=== PATIENT | female | born 1990 | race African-American/Black ===

== ENCOUNTER 2017-04-15 08:12 | Emergency (ER) | payer OTHER ==
[~2017-04-15] VITALS: Ht 154.9 cm; Wt 74.8 kg
[2017-04-15 09:58] LABS: U PREG PATIENT POSITIVE (NEG)
[2017-04-15 10:00] LABS: BILIRUBIN,URINE NEG (NEG); CLARITY,URINE HAZY; COLOR,URINE STRAW; GLUCOSE,URINE NEG (NEG); NITRITE,URINE NEG (NEG); RBC,URINE 0 /HPF (0-2); UROBILINOGEN,URINE 0.2 mg/dL (0.2 mg/dL)
[2017-04-15 10:01] LABS: BACTERIA,URINE FEW /HPF (0-FEW); SQUAMOUS EPITHELIAL CELL,UR OCC /LPF
[2017-04-15] MEDS ORDERED: ACETAMINOPHEN 325 MG TABLET PO ONE (10:15)
--- NOTE | 2017-04-15 10:16 | PHYS DOC ---
Past History Past Medical History: No Pertinent History Past Surgical History: , Tonsillectomy Smoking: Non-smoker Additional Smoking Information: PATIENT STATES SHE HAS CUT DOWN, SMOKES 2 CIGARETTES A DAY Alcohol Use: None Drug Use: Marijuana Adult General Chief Complaint Chief Complaint: MULTIPLE COMPLAINTS HPI HPI Patient is a 27 year old female who presents with complaint of headaches, nausea , and backaches. Patient states that her symptoms have been present over the past 3-4 days. Patient states that she has had history of migraine headaches and similar symptoms with previous pregnancies. The patient's main concern is the potential presents for . Patient states that her last menstrual period was at the beginning of January. Patient states that she had light spotting at the end of March. Patient is not having any pelvic or lower abdominal pain. Patient denies any vaginal bleeding or abnormal discharge. Patient has not taken a test at home. Patient states that her headache is an 8 out of 10. Patient has taken [id number] medications including ibuprofen and Tylenol with no relief in symptoms. Patient has had no fevers and has had no episodes of vomiting today. Patient has been tolerating normal oral intake. Review of Systems Review of Systems Constitutional: Denies fever or chills [] Eyes: Denies change in visual acuity, redness, or eye pain [] HENT: Denies nasal congestion or sore throat [] Respiratory: Denies cough or shortness of breath [] Cardiovascular: Denies chest pain or edema [] GI: Nausea, vomiting, denies bloody stools or diarrhea [] : Denies dysuria or hematuria [] Musculoskeletal: Back pain [] Integument: Denies rash or skin lesions [] Neurologic: Headache, denies focal weakness or sensory changes [] Current Medications Current Medications Current Medications Medications (Trade) Dose Ordered Sig/Keesha Start Time Stop Time Status Last Admin Dose Admin Acetaminophen (Tylenol) 650 mg 1X ONCE 04/15/17 10:15 04/15/17 10:16 UNV Allergies Allergies Allergies Coded Allergies Type Severity Reaction Last Updated Verified No Known Drug Allergies 01/05/16 No Physical Exam Physical Exam Constitutional: Alert, afebrile, no acute distress. [] HENT: Normocephalic, atraumatic, bilateral external ears normal, oropharynx moist, no oral exudates, nose normal. [] Eyes: PERRLA, EOMI, conjunctiva normal, no discharge. [] Neck: Normal range of motion, no tenderness, supple, no stridor. [] Cardiovascular:Heart rate regular rhythm, no murmur [] Lungs & Thorax: Bilateral breath sounds clear to auscultation [] Abdomen: Bowel sounds normal, soft, no tenderness, no masses, no pulsatile masses. [] Skin: Warm, dry, no erythema, no rash. [] Back: No tenderness, no CVA tenderness. [] Extremities: No tenderness, no cyanosis, no clubbing, ROM intact, no edema. [] Neurologic: Alert and oriented X 3, normal motor function, normal sensory function, no focal deficits noted. [] Current Patient Data Vital Signs Vital Signs Date Time Temp Pulse Resp B/P (MAP) Pulse Ox O2 Delivery O2 Flow Rate FiO2 04/15/17 09:48 78 18 107/63 (78) 98 Room Air 04/15/17 08:52 98.5 Lab Results Laboratory Tests Test 04/15/17 09:40 Urine Collection Type Unknown Urine Color Straw Urine Clarity Hazy Urine pH 5.5 Urine Specific [place] <=1.005 Urine Protein Neg (NEG-TRACE) Urine Glucose (UA) Neg mg/dL (NEG) Urine Ketones (Stick) Neg mg/dL (NEG) Urine Blood Neg (NEG) Urine Nitrite Neg (NEG) Urine Bilirubin Neg (NEG) Urine Urobilinogen Dipstick 0.2 mg/dL (0.2 mg/dL) Urine Leukocyte Esterase Small (NEG) Urine RBC 0 /HPF (0-2) Urine WBC 1-4 /HPF (0-4) Urine Squamous Epithelial Cells Occ /LPF Urine Bacteria Few /HPF (0-FEW) Urine Test Positive (NEG) EKG EKG Not performed [] Radiology/Procedures Radiology/Procedures Not performed [] Course & Med Decision Making Course & Med Decision Making Pertinent Labs and Imaging studies reviewed. (See chart for details) The patient's urine test was positive in the emergency department. The patient's symptoms are described as typical for patient's previous pregnancies. The patient does not appear toxic or in any acute distress at this time. The patient was administered Tylenol for symptoms. Advised patient to schedule follow-up in one week with Dr. Olsen of [facility]. Also recommended initiation of daily vitamins. Counseled patient on discontinuing use of marijuana during . Advised return emergency department for any worsening symptoms. Patient voiced understanding of recommendations and was in agreement with treatment plan upon discharge. Dragon Disclaimer Dragon Disclaimer This chart was dictated in whole or in part using Voice Recognition software in a busy, high-work load, and often noisy Emergency Department environment. It may contain unintended and wholly unrecognized errors or omissions. Departure Departure: Impression: Primary Impression: Positive test Additional Impression: Headache Disposition: 01 HOME, SELF-CARE Condition: IMPROVED Referrals: JAZIEL OLSEN JR, MD (PCP) Patient Instructions: Additional Instructions: Follow-up with Dr. Olsen in one week to establish care and for reevaluation. Return to the emergency department for any worsening symptoms. Problem Qualifiers Additional Impression: Headache Headache type: unspecified Headache chronicity pattern: unspecified pattern Intractability: not intractable Qualified Codes: R51 - Headache SANTOS ALEJANDRO MD Apr 15, 2017 10:15
[2017-04-15 10:31] VITALS: BP 115/63
== END 2017-04-15 10:25 | disposition home or self-care (01) ==
LOC: ER 08:12
DX: Z32.01 Encounter for pregnancy test, result positive (principal); R51 Headache; R11.0 Nausea; M54.89 Other dorsalgia; F17.210 Nicotine dependence, cigarettes, uncomplicated; F12.10 Cannabis abuse, uncomplicated
CPT/HCPCS: 81001; 81025; 87086; 99284

== ENCOUNTER → 2017-07-25 | Outpatient (CLI) | payer OTHER ==
--- NOTE | 2017-07-25 16:26 | RAD ---
INDICATION: with evaluation of size and date requested. COMPARISON: No priors. TECHNIQUE: Grayscale and color ultrasound images obtained through the uterus. Findings: Single intrauterine fetus is seen. Placenta is posterior. Breech presentation. The maturity is as follows. Estimated weight: 676 grams. The composite maturity is 24 weeks and 3 days NALLELY of 10 cm. Cervical length: 6.5cm. heart rate: 136 beats per minute. Four-chamber heart is seen Three-vessel cord is seen. Abdominal wall cord insertion is seen. Fluid-filled stomach and urinary bladder are seen. The urinary bladder is distended with urine at the time of exam. Bilateral kidneys are visualized. Craniocervical junction and spine is partially seen. Some regions are obscured. BPD 6 cm, 3 percentile Head circumference 22.5 cm, 1 percentile Abdominal circumference 19 cm, 1 percentile Femur length, 4.5 cm, 7 percentile Estimated weight on the 23rd percentile. Head circumference/abdominal circumference 1.18, 82nd percentile Impression: 1. Single live intrauterine fetus identified with positive cardiac activity. 2. The composite maturity is 24 weeks and 3 days with a sonographic EDC of 11/11/2017. 3. Estimated weight of 676 g. This is on the 23rd percentile. Continued follow-up could be obtained to ensure appropriate growth.
== END | disposition home or self-care (01) ==
LOC: US 13:53
PROVIDERS: ATTEND Obstetrics & Gynecology
DX: O32.1XX0 Maternal care for breech presentation, not applicable or unspecified (principal); O34.219 Maternal care for unspecified type scar from previous cesarean delivery; Z3A.24 24 weeks gestation of pregnancy
CPT/HCPCS: 76805

== ENCOUNTER → 2017-08-30 | Outpatient (CLI) | payer OTHER ==
[2017-08-30 11:42] LABS: BASO % 0 % (0-3); EOS # 0.1 x10^3/uL (0.0-0.7); EOS % 2 % (0-3); HEMATOCRIT 31.8 % (36.0-47.0); LYMPH # 2.7 x10^3/uL (1.0-4.8); LYMPH % 36 % (24-48); MEAN CORPUSCULAR HEMOGLOBIN 28 pg (25-35); MEAN CORPUSCULAR HGB CONC 34 g/dL (31-37); MEAN CORPUSCULAR VOLUME 82 fL (79-100); MONO # 0.5 x10^3/uL (0.0-1.1); MONO % 7 % (0-9); NEUT # 4.2 x10^3uL (1.8-7.7); NEUT % 55 % (31-73); PLATELET COUNT 232 x10^3/uL (140-400); RED BLOOD COUNT 3.88 x10^6/uL (3.50-5.40); RED CELL DISTRIBUTION WIDTH 13.1 % (11.5-14.5); WHITE BLOOD COUNT 7.5 x10^3/uL (4.0-11.0)
== END | disposition home or self-care (01) ==
LOC: LAB 10:44
PROVIDERS: ATTEND Obstetrics & Gynecology
DX: O09.90 Supervision of high risk pregnancy, unspecified, unspecified trimester (principal)
CPT/HCPCS: 36415; 82950; 85025

== ENCOUNTER 2020-10-02 13:52 | Emergency (ER) | payer MEDICAID, OTHER ==
[~2020-10-02] VITALS: Ht 167.6 cm; Wt 97.0 kg
--- NOTE | 2020-10-02 14:05 | PHYS DOC ---
Past History Past Medical History: No Pertinent History (WILLIAM ELIZALDE MD) Past Surgical History: , Tonsillectomy (WILLIAM ELIZALDE MD) Smoking: Non-smoker Alcohol Use: None Drug Use: Marijuana (WILLIAM ELIZALDE MD) General Adult EDM: Chief Complaint: MULTIPLE COMPLAINTS HPI: HPI: Patient is a 30-year-old female coming in by EMS after being found on the ground at [facility], patient was complaining of pain today that radiated from her back to her groin. She is 5 months . Is a G5, P3. Patient denies any vaginal bleeding or discharge she is very sleepy when attempting to interview. Paramedics said she has been progressively more sleepy since they put her in the ambulance. Patient denies taking any opioids or alcohol taking one benzodiazepine. She denies any history of kidney stones or kidney problems. No complications with this . (WILLIAM ELIZALDE MD) Review of Systems: Review of Systems: All other systems within normal limits except for as noted in the HPI, and limited by patient cooperation (WILLIAM ELIZALDE MD) Allergies: Allergies: Allergies Coded Allergies Type Severity Reaction Last Updated Verified No Known Drug Allergies 01/05/16 No (WILLIAM ELIZALDE MD) Physical Exam: PE: Constitutional: Well developed, well nourished, no acute distress, non-toxic appearance. Sleepy but arousable [] HENT: Normocephalic, atraumatic, bilateral external ears normal, nose normal. [] Eyes: PERRLA, conjunctiva normal, no discharge. [] Neck: No rigidity, supple, no stridor. [] Cardiovascular: Regular rate and rhythm, brisk cap refill [] Lungs & Thorax: Non labored symmetric respirations, no tachypnea or respiratory distress [] Abdomen: Soft, nondistended, fundus palpable above umbilicus, mild right-sided pain, no Rovsing sign, no rebound or guarding. Skin: Warm, dry, no erythema, no rash. [] Back: No tenderness, no CVA tenderness. [] Extremities: No deformities, range of motion grossly intact, no lower extremity edema [] Neurologic: Alert and oriented X 3, no focal deficits noted. [] Psychologic: Affect normal, judgement normal, mood normal. [] (WILLIAM ELIZALDE MD) EKG: EKG: [] (WILLIAM ELIZALDE MD) Radiology/Procedures: Radiology/Procedures: [] (WILLIAM ELIZALDE MD) Heart Score: Risk Factors: Risk Factors: DM, Current or recent (<one month) smoker, HTN, HLP, family history of CAD, obesity. Risk Scores: Score 0 - 3: 2.5% MACE over next 6 weeks - Discharge Home Score 4 - 6: 20.3% MACE over next 6 weeks - Admit for Clinical Observation Score 7 - 10: 72.7% MACE over next 6 weeks - Early Invasive Strategies (WILLIAM ELIZALDE MD) Course & Med Decision Making: Course & Med Decision Making Patient refusing to give urine sample, responded to Narcan with vomiting and was alert for a while, fell back asleep. Sister interviewed by security because she is also acting "out of it" but when she spoke to security they state she was appropriate and alert and oriented. They said that the "tired" but denies any substance abuse. Patient refused ultrasound to evaluate right lower quadrant and kidney pathology, so she is not having any more abdominal pain. [] (WILLIAM ELIZALDE MD) Course & Med Decision Making I assumed care of patient after comprehensive signout obtained from off going physician, I reviewed ER work-up thus far I personally saw patient and repeated certain aspects of history and physical exam. Her mentation and overall clinical presentation had drastically improved since arrival Patient reports smoking typical amount of marijuana but admits "I did more Xanax than usual... I usually just break up a bar into several pieces but I took a whole bar today" I reviewed that this is most likely cause of her presentation. I also discussed findings of UTI but patient admits that this is known diagnosis for her, she was recently started on Keflex by her COMMERCIAL INTERN I reviewed patient's entire ER work-up that was remarkable for UTI with possible mild right hydronephrosis. Also discussed need for nonemergent survey I called patient's COMMERCIAL INTERN prior to departure and discussed case, he was agreeable with plan of care for departure, she is already on appropriate antibiotic therapy and has outpatient follow-up with him scheduled this upcoming week with survey planned I discussed strict return precautions with patient who demonstrated good understanding, all questions and concerns addressed prior to ER departure. Patient asymptomatic, ambulatory, tolerating p.o. and well-appearing on de parture (PRECIOUS MOREJON DO) [place] Disclaimer: [place] Disclaimer: This electronic medical record was generated, in whole or in part, using a voice recognition dictation system. (WILLIAM ELIZALDE MD) Departure Departure: Impression: Primary Impression: Benzodiazepine abuse Additional Impression: UTI (urinary tract infection) Disposition: 01 DC HOME SELF CARE/HOMELESS Condition: IMPROVED Referrals: JAZIEL GO JR, MD (PCP) Additional Instructions: You were seen for decreased mentation. This is likely due to you taking more Xanax than prescribed in addition to your known urinary tract infection. Please continue to take the previously prescribed antibiotics as instructed. I disclosed findings of your ultrasound today and need for nonemergent dedicated survey with your COMMERCIAL INTERN. I have contacted your COMMERCIAL INTERN prior to ER departure to ensure he is aware of your ER visit and plan of care going forward. You should return to the ED if you develop worsening pain, fever, flank pain, or any other new or concerning symptoms. Any concerning signs or symptoms present prior to outpatient follow-up please do not hesitate to come back for repeat evaluation. It was a pleasure to take care of you and I wish you a speedy recovery WILLIAM ELIZALDE MD Oct 02, 2020 14:05 PRECIOUS MOREJON DO Oct 02, 2020 19:23
[2020-10-02] MEDS ORDERED: NALOXONE 2 MG/2 ML DISP.SYRIN. IV ONE (14:15)
[2020-10-02 14:31] LABS: BASO % 1 % (0-3); EOS # 0.2 x10^3/uL (0.0-0.7); EOS % 4 % (0-3); HEMATOCRIT 28.9 % (36.0-47.0); HEMOGLOBIN 9.4 g/dL (12.0-15.5); LYMPH # 1.8 x10^3/uL (1.0-4.8); LYMPH % 30 % (24-48); MEAN CORPUSCULAR HEMOGLOBIN 25 pg (25-35); MEAN CORPUSCULAR HGB CONC 33 g/dL (31-37); MEAN CORPUSCULAR VOLUME 77 fL (79-100); MONO # 0.4 x10^3/uL (0.0-1.1); MONO % 7 % (0-9); NEUT # 3.5 x10^3uL (1.8-7.7); NEUT % 58 % (31-73); PLATELET COUNT 247 x10^3/uL (140-400); RED BLOOD COUNT 3.77 x10^6/uL (3.50-5.40); RED CELL DISTRIBUTION WIDTH 15.4 % (11.5-14.5)
[2020-10-02 14:39] LABS: CALCIUM 9.3 mg/dL (8.5-10.1); CREATININE 0.7 mg/dL (0.6-1.0); GFR 119.7; POTASSIUM 3.6 mmol/L (3.5-5.1)
[2020-10-02 14:45] LABS: ALBUMIN 2.7 g/dL (3.4-5.0); ALBUMIN/GLOBULIN RATIO 0.6 (1.0-1.7); TOTAL BILIRUBIN 0.2 mg/dL (0.2-1.0); TOTAL PROTEIN 7.1 g/dL (6.4-8.2)
[2020-10-02] MEDS ORDERED: ONDANSETRON PF 4 MG/2 ML VIAL. IVP ONE (14:45)
[2020-10-02] MEDS ORDERED: NALOXONE 0.4 MG/ML VIAL. IV ONE (15:45)
[2020-10-02] MEDS ORDERED: IV NORMAL SALINE 1,000ML 1,000 ML IV ONE (15:45)
[2020-10-02 17:38] LABS: BARBITURATES NEG (NEG); BENZODIAZEPINES POS (NEG); CANNABINOIDS POS (NEG); COCAINE NEG (NEG); METHADONE NEG (NEG); OPIATES POS (NEG); PHENCYCLIDINE NEG (NEG)
[2020-10-02 17:40] LABS: AMPHETAMINE/METHAMPHETAMINE NEG (NEG)
[2020-10-02 18:00] VITALS: BP 104/68
[2020-10-02 18:39] LABS: BILIRUBIN,URINE NEG (NEG); CLARITY,URINE CLEAR; COLOR,URINE YELLOW; GLUCOSE,URINE NEG (NEG); UROBILINOGEN,URINE 0.2 mg/dL (0.2 mg/dL)
[2020-10-02 18:40] LABS: NITRITE,URINE POS (NEG)
[2020-10-02 18:42] LABS: BACTERIA,URINE MANY /HPF (0-FEW); SQUAMOUS EPITHELIAL CELL,UR MOD /LPF
--- NOTE | 2020-10-02 19:05 | RAD ---
Exam: Ultrasound OB limited Indication: Right abdominal pain Technique: Real-time grayscale and color Doppler images of the pelvis were obtained by the department manager motor. Comparisons: None FINDINGS: Within the uterus there is a single live intrauterine gestation with heart rate measured at 130 bpm. measurements as follows: BPD: 5.3 corresponding to 22 weeks 2 days Head circumference: 21.0 cm corresponding to 23 weeks 1 day Abdominal circumference: 18.9 cm corresponding to 23 weeks 4 days Femur length: 4.3 cm corresponding to 24 weeks 0 days Cervical length measured at 4.7 cm. NALLELY appears normal. IMPRESSION: 1. Single live intrauterine gestation with measurements as described above. Correlate with LMP . 2. Dedicated survey is recommended in the nonemergent setting if not already performed. Electronically signed by: Luz Maria Evans MD (10/02/2020 7:03 PM) ANNY
--- NOTE | 2020-10-02 19:07 | RAD ---
Exam: Ultrasound renal complete Indication: Right abdominal pain Technique: Real-time grayscale and color Doppler images of the kidneys were obtained by the [facility] customer service engineer. Comparisons: None FINDINGS: Evaluation limited. Patient was not cooperative during the exam. Right kidney measures 12.67 m in length. Possible mild right-sided hydronephrosis. Left kidney measures 12.2 cm in length. No hydronephrosis. Bladder is distended and appears thin-walled. Incidental note of diffuse hepatic steatosis. IMPRESSION: 1. Limitations as described above. 2. Possible mild right-sided hydronephrosis. 3. Incidental note of hepatic steatosis. Electronically signed by: Luz Maria Evans MD (10/02/2020 7:05 PM) NBA
== END 2020-10-02 19:32 | disposition home or self-care (01) ==
LOC: ER 13:52
DX: N39.0 Urinary tract infection, site not specified (principal); F19.10 Other psychoactive substance abuse, uncomplicated; M54.5 Low back pain; F12.90 Cannabis use, unspecified, uncomplicated; Z90.89 Acquired absence of other organs; Z98.890 Other specified postprocedural states
CPT/HCPCS: 36415; 76770; 76815; 80053; 80307; 81001; 83690; 85025; 87086; 96361; 96374; 96375; 96376; 99285; G0480; J2310; J2405; J7030; 87077; 87186

== ENCOUNTER → 2020-11-04 | Outpatient (CLI) | payer OTHER ==
--- NOTE | 2020-11-04 17:54 | RAD ---
EXAM: Ultrasound OB Greater than 14 weeks INDICATION: Reason: SIZE AND DATES / Spl. Instructions: / History: TECHNIQUE: Real-time obstetrical ultrasound was performed with permanent freeze-frame documentation. COMPARISON: None. FINDINGS: POSITION: Breech HEART RATE: 150 bpm NALLELY: 7.9 cm PLACENTA: Anterior CERVICAL LENGTH: 4.0 cm MATERNAL UTERUS: Unremarkable. MATERNAL ADNEXA: Unremarkable. AGE/DATES: Gestational Age by LMP: 28 weeks 0 days Gestation Age by US: 27 weeks 5 days EDC by LMP: 01/27/2021 EDC by US: 01/29/2021 WEIGHT: 1053 grams +/- 156 grams PERCENTILE WEIGHT: 39%. BIOMETRIC PARAMETERS: BPD: 7.0 cm corresponding with 28 weeks 0 days HC: 26.0 cm corresponding with 28 weeks 2 days AC: 22.4 cm corresponding with 26 weeks 6 days FL: 5.2 cm corresponding with 27 weeks 4 days ANATOMY: CARDIAC: Normal four chamber heart. Normal right and left ventricular outflow tracts. UMBILICAL CORD: Normal 3 vessel cord. Normal cord insertion. BRAIN: Unremarkable. NOSE/LIPS: Unremarkable. SPINE: Unremarkable. EXTREMITIES: Unremarkable. STOMACH: Unremarkable. KIDNEYS: Unremarkable. BLADDER: Unremarkable. IMPRESSION: Normal OB ultrasound demonstrating a single viable fetus in breech position. Estimated gestational ag e of 27 weeks 5 days and EDC of 01/29/2021. Electronically signed by: Eb Pruett MD (11/04/2020 5:52 PM) [id number]
== END ==
LOC: US 08:08
PROVIDERS: ATTEND Obstetrics & Gynecology
DX: Z32.01 Encounter for pregnancy test, result positive (principal); O34.212 Maternal care for vertical scar from previous cesarean delivery; O26.842 Uterine size-date discrepancy, second trimester; Z3A.27 27 weeks gestation of pregnancy
CPT/HCPCS: 76805

== ENCOUNTER → 2020-11-06 | Outpatient (CLI) | payer OTHER ==
[2020-11-06 11:21] LABS: BASO % 0 % (0-3); EOS # 0.3 x10^3/uL (0.0-0.7); EOS % 4 % (0-3); HEMATOCRIT 28.8 % (36.0-47.0); HEMOGLOBIN 9.2 g/dL (12.0-15.5); LYMPH # 2.1 x10^3/uL (1.0-4.8); LYMPH % 32 % (24-48); MEAN CORPUSCULAR HEMOGLOBIN 25 pg (25-35); MEAN CORPUSCULAR HGB CONC 32 g/dL (31-37); MEAN CORPUSCULAR VOLUME 78 fL (79-100); MONO # 0.5 x10^3/uL (0.0-1.1); MONO % 7 % (0-9); NEUT # 3.9 x10^3uL (1.8-7.7); NEUT % 57 % (31-73); PLATELET COUNT 244 x10^3/uL (140-400); RED BLOOD COUNT 3.69 x10^6/uL (3.50-5.40); WHITE BLOOD COUNT 6.8 x10^3/uL (4.0-11.0)
== END ==
LOC: LAB 08:33
PROVIDERS: ATTEND Obstetrics & Gynecology
DX: O09.90 Supervision of high risk pregnancy, unspecified, unspecified trimester (principal); Z3A.00 Weeks of gestation of pregnancy not specified
CPT/HCPCS: 36415; 82950; 85025; 86850; 86900; 86901

== ENCOUNTER 2021-01-30 23:37 | Emergency (ER) | payer OTHER ==
[~2021-01-30] VITALS: Ht 162.6 cm; Wt 97.0 kg
--- NOTE | 2021-01-30 23:46 | PHYS DOC ---
Past History Past Medical History: No Pertinent History Past Surgical History: No Surgical History Smoking: Non-smoker Alcohol Use: None Drug Use: Marijuana Adult General Chief Complaint Chief Complaint: POST-OP PROBLEM HPI HPI Patient is a 31-year-old female presenting for postoperative complications status post 2 weeks ago. States she has had ongoing pain ever since her fifth and total. Reports pain has acutely worsened in past 48 hours. She reports she has had increasing fluid collection in her ventral abdomen that has been painful to touch. Denies any fever but admits feeling sweaty at times. No recent changes in medication, no antibiotic use. She has had no complications from prior C-sections, no other abdominal surgeries in the past Review of Systems Review of Systems Fourteen body systems of review of systems have been reviewed. See HPI for pertinent positives and negative responses, other solano all other systems are negative, non-pertinent or non-contributory Allergies Allergies Allergies Coded Allergies Type Severity Reaction Last Updated Verified acetaminophen Allergy Mild Hives, Rash 10/02/20 Yes Physical Exam Physical Exam Constitutional: Well developed, well nourished, no acute distress, non-toxic appearance. HENT: Normocephalic, atraumatic, bilateral external ears normal, oropharynx moist, no oral exudates, nose normal. Eyes: PERRLA, EOMI, conjunctiva normal, no discharge. Neck: Normal range of motion, no tenderness, supple, no stridor. Cardiovascular: Heart rate regular, sinus rhythm, no murmurs rubs or gallops Lungs & Thorax: Bilateral breath sounds clear to auscultation Abdomen: Bowel sounds normal, protuberant abdomen, tender to palpation in left lower quadrant area with guarding present, no rebound, no masses, no pulsatile masses. Well-appearing recent horizontal suprapubic incision from . In left lower quadrant there is palpable fluid wave and subcutaneous crepitus on palpation that is exquisitely tender Skin: Warm, dry, no erythema, no rash. Back: No tenderness, no CVA tenderness. Extremities: No tenderness, no cyanosis, no clubbing, ROM intact, no edema. Neurologic: Alert and oriented X 3, grossly normal motor & sensory function, no focal deficits noted. Psychologic: Anxious affect and mood Current Patient Data Vital Signs Vital Signs Date Time Temp Pulse Resp B/P (MAP) Pulse Ox O2 Delivery O2 Flow Rate FiO2 01/30/21 23:51 98.9 91 18 149/77 (101) 98 Room Air Vital Signs Date Time Temp Pulse Resp B/P (MAP) Pulse Ox O2 Delivery O2 Flow Rate FiO2 01/30/21 23:51 98.9 91 18 149/77 (101) 98 Room Air Lab Results Laboratory Tests Test 01/31/21 00:15 White Blood Count 13.5 x10^3/uL Red Blood Count 4.02 x10^6/uL Hemoglobin 9.5 g/dL Hematocrit 29.9 % Mean Corpuscular Volume 74 fL Mean Corpuscular Hemoglobin 24 pg Mean Corpuscular Hemoglobin Concent 32 g/dL Red Cell Distribution Width 19.9 % Platelet Count 539 x10^3/uL Neutrophils (%) (Auto) 71 % Lymphocytes (%) (Auto) 22 % Monocytes (%) (Auto) 6 % Eosinophils (%) (Auto) 1 % Basophils (%) (Auto) 0 % Neutrophils # (Auto) 9.6 x10^3uL Lymphocytes # (Auto) 2.9 x10^3/uL Monocytes # (Auto) 0.7 x10^3/uL Eosinophils # (Auto) 0.1 x10^3/uL Basophils # (Auto) 0.1 x10^3/uL Sodium Level 144 mmol/L Potassium Level 4.1 mmol/L Chloride Level 106 mmol/L Carbon Dioxide Level 29 mmol/L Anion Gap 9 Blood Urea Nitrogen 13 mg/dL Creatinine 0.8 mg/dL Estimated GFR (Cockcroft-Gault) 101.9 Glucose Level 112 mg/dL Lactic Acid Level 1.2 mmol/L Calcium Level 8.8 mg/dL Current Medications Medications (Trade) Dose Ordered Sig/Keesha Route PRN Reason Start Time Stop Time Status Last Admin Dose Admin Iohexol (Omnipaque 300 Mg/ml) 75 ml 1X ONCE IV 01/31/21 00:15 01/31/21 00:16 DC 01/31/21 00:50 Info (Do NOT chart on this entry -- for MONITORING) 1 each PRN DAILY PRN MC SEE COMMENTS 01/31/21 00:30 02/02/21 00:29 Vancomycin HCl 2 gm/Sodium Chloride 500 ml @ 250 mls/hr 1X ONCE IV 01/31/21 01:45 01/31/21 03:44 Piperacillin Sod/ Tazobactam Sod 3.375 gm/Sodium Chloride 50 ml @ 100 mls/hr 1X ONCE IV 01/31/21 01:45 01/31/21 02:14 Sodium Chloride 1,000 ml @ 1,000 mls/hr 1X ONCE IV 01/31/21 01:45 01/31/21 02:44 EKG EKG [] Radiology/Procedures Radiology/Procedures CT abdomen pelvis with contrast dated 01/31/2021. No comparison available. CLINICAL INDICATION: Pain after 2 weeks ago. TECHNIQUE: Contiguous axial imaging the abdomen pelvis performed after the administration of 75 cc Omnipaque 300. One or more of the following individualized dose reduction techniques were utilized for this examination: 1. Automated exposure control 2. Adjustment of the mA and/or kV according to patient size 3. Use of iterative reconstruction technique FINDINGS: Limited images of lung bases are clear. Heart size within normal limits. No pleural or pericardial effusion. Liver and spleen are homogeneous. No focal hepatic mass. No biliary ductal di latation. Gallbladder unremarkable. Pancreas, adrenal glands and kidneys are unremarkable. No hydronephrosis. There is a large complex fluid collection within the rectus abdominous muscle on the left extends from the pelvis nearly to the level of the hemidiaphragm on the left. This shows a prominent fluid fluid level with scattered internal pockets of gas. The collection measures 7.2 x 11.9 x 16.2 cm. There is associated edema within the subcutaneous fat of the anterior abdominal wall. The collection extends inferiorly and appears to cross midline to the inferior most portion of the right rectus muscle. GI tract normal in caliber and contour. No bowel wall thickening. The appendix is normal in caliber. There are a few borderline enlarged retroperitoneal lymph nodes. No mesenteric adenopathy. No significant ascites or pneumoperitoneum. Images of the pelvis show nondistended urinary bladder. Uterus is enlarged and there is thickening of the endometrium. There are mildly enlarged bilateral inguinal and iliac chain lymph nodes measuring up to 1.1 cm short axis. Bone windows show no acute findings. IMPRESSION: 1. Large complex fluid collection at the left rectus muscle, likely related to rectus sheath hematoma. There are small bubbles of gas within the collection and underlying superinfection is not excluded. Correlate clinically. 2. Patchy edema within the subcutaneous tissues there is nonspecific and could be reactive. Underlying cellulitis is possible. 3. Mild inguinal and iliac chain lymphadenopathy with a few borderline enlarged lymph nodes in the retroperitoneum, likely reactive. Electronically signed by: Sony Kaur MD (01/31/2021 1:19 AM) [facility] [place] DICTATED AND SIGNED BY: SONY KAUR MD DATE: 01/31/21 0113 CC: PRECIOUS MOREJON DO; JAZIEL GO JR, MD ~MTH0 0 Heart Score C/O Chest Pain: No HEART Score for Chest Pain: HEART Score for Chest Pain Response (Comments) Value History Slighlty/Non-Suspicious 0 Age < 45 0 Risk Factors No Risk Factors 0 Total 0 Risk Factors: Risk Factors: DM, Current or recent (<one month) smoker, HTN, HLP, family history of CAD, obesity. Risk Scores: Risk Factors: DM, Current or recent (<one month) smoker, HTN, HLP, family history of CAD, obesity. Course & Med Decision Making Course & Med Decision Making Afebrile hemodynamically stable patient with HPI concerning for postoperative complications status post . Physical exam concerning for intra- abdominal pathology Comprehensive ER work-up showing rectus sheath hematoma with high clinical concern for acute intra-abdominal infection. Patient septic per criteria 1 L normal saline administered, vancomycin and Zosyn started I contacted hospitalist service at [facility] and discussed need for transport for continued medical management, they were amenable and accepted patient under their care. REFERRAL RN surgeon who performed was also contacted and case discussed, he recommended nonemergent ultrasound upon transfer at accepting facility to be performed and will see patient later this morning I updated patient on proposed plan of care that included hospital transfer for inpatient admission and she was amenable, all questions and concerns addressed prior to ER departure Critical Care Time This patient required critical care. Due to the fact that the patient required a significant amount of one on one physician - patient contact time, ordering and review of studies, arranging urgent treatment with development of a management plan, evaluation of patients response to treatment with frequent reassessments, and discussions with other providers this patient required 40 minutes of critical care time. Critical care time was indicated due to the inherent instability and/or potential for instability in this patient. The critical care time that is allocated to this patient is above and beyond any time spent on any other billable procedures performed on this patient. Dragon Disclaimer Dragon Disclaimer This electronic medical record was generated, in whole or in part, using a voice recognition dictation system. Departure Departure: Impression: Primary Impression: Postoperative complication of section Additional Impressions: Rectus sheath hematoma Intra-abdominal infection Disposition: [facility] ([place]) Admitting Physician: Other (dr hernandez) Condition: STABLE Referrals: JAZIEL GO JR, MD (PCP) Problem Qualifiers PRECIOUS MOREJON DO Jan 30, 2021 23:46
[2021-01-30 23:51] VITALS: BP 149/77
[2021-01-31] MEDS ORDERED: IOHEXOL 300 MG/ML 75 ML VIAL. IV ONE (00:15)
[2021-01-31] MEDS ORDERED: CONTRAST GIVEN. MC PRN (00:30)
[2021-01-31 00:47] LABS: CALCIUM 8.8 mg/dL (8.5-10.1); CREATININE 0.8 mg/dL (0.6-1.0); GFR 101.9; POTASSIUM 4.1 mmol/L (3.5-5.1)
[2021-01-31 00:48] LABS: BASO # 0.1 x10^3/uL (0.0-0.2); BASO % 0 % (0-3); EOS # 0.1 x10^3/uL (0.0-0.7); EOS % 1 % (0-3); HEMATOCRIT 29.9 % (36.0-47.0); HEMOGLOBIN 9.5 g/dL (12.0-15.5); LYMPH # 2.9 x10^3/uL (1.0-4.8); LYMPH % 22 % (24-48); MEAN CORPUSCULAR HEMOGLOBIN 24 pg (25-35); MEAN CORPUSCULAR HGB CONC 32 g/dL (31-37); MEAN CORPUSCULAR VOLUME 74 fL (79-100); MONO # 0.7 x10^3/uL (0.0-1.1); MONO % 6 % (0-9); NEUT # 9.6 x10^3uL (1.8-7.7); NEUT % 71 % (31-73); PLATELET COUNT 539 x10^3/uL (140-400); RED BLOOD COUNT 4.02 x10^6/uL (3.50-5.40); RED CELL DISTRIBUTION WIDTH 19.9 % (11.5-14.5); WHITE BLOOD COUNT 13.5 x10^3/uL (4.0-11.0)
--- NOTE | 2021-01-31 01:21 | RAD ---
CT abdomen pelvis with contrast dated 01/31/2021. No comparison available. CLINICAL INDICATION: Pain after 2 weeks ago. TECHNIQUE: Contiguous axial imaging the abdomen pelvis performed after the administration of 75 cc Omnipaque 300 . One or more of the following individualized dose reduction techniques were utilized for this examinat ion: 1. Automated exposure control 2. Adjustment of the mA and/or kV according to patient size 3. Use of iterative reconstruction technique FINDINGS: Limited images of lung bases are clear. Heart size within normal limits. No pleural or pericardial ef fusion. Liver and spleen are homogeneous. No focal hepatic mass. No biliary ductal dilatation. Gallbladder un remarkable. Pancreas, adrenal glands and kidneys are unremarkable. No hydronephrosis. There is a large complex fluid collection within the rectus abdominous muscle on the left extends fro m the pelvis nearly to the level of the hemidiaphragm on the left. This shows a prominent fluid fluid level with scattered internal pockets of gas. The collection measures 7.2 x 11.9 x 16.2 cm. There is associated edema within the subcutaneous fat of the anterior abdominal wall. The collection extends inferiorly and appears to cross midline to the inferior most portion of the right rectus muscle. GI tract normal in caliber and contour. No bowel wall thickening. The appendix is normal in caliber. There are a few borderline enlarged retroperitoneal lymph nodes. No mesenteric adenopathy. No signifi cant ascites or pneumoperitoneum. Images of the pelvis show nondistended urinary bladder. Uterus is enlarged and there is thickening of the endometrium. There are mildly enlarged bilateral inguinal and iliac chain lymph nodes measuring up to 1.1 cm short axis. Bone windows show no acute findings. IMPRESSION: 1. Large complex fluid collection at the left rectus muscle, likely related to rectus sheath hematoma . There are small bubbles of gas within the collection and underlying superinfection is not excluded. Correlate clinically. 2. Patchy edema within the subcutaneous tissues there is nonspecific and could be reactive. Underlyin g cellulitis is possible. 3. Mild inguinal and iliac chain lymphadenopathy with a few borderline enlarged lymph nodes in the re troperitoneum, likely reactive. Electronically signed by: Sony Lovett MD (01/31/2021 1:19 AM) [facility]
[2021-01-31] MEDS ORDERED: VANCOMYCIN 2 GM in IV NORMAL SALINE 500ML 500 ML IV ONE (01:45)
[2021-01-31] MEDS ORDERED: IV NORMAL SALINE 1,000ML 1,000 ML IV ONE (01:45)
[2021-01-31] MEDS ORDERED: PIPERACILLIN/TAZOBACTAM 3.375 GM in IV NORMAL SALINE 50ML 50 ML IV ONE (01:45)
[2021-01-31] MEDS ORDERED: PIPERACILLIN/TAZOBACTAM 3.375 GM VIAL IV ONE (01:56)
[2021-01-31] MEDS ORDERED: IV NORMAL SALINE 50ML 50 ML ONE (01:56)
[2021-01-31] MEDS ORDERED: VANCOMYCIN 1 GM VIAL. ONE (02:57)
[2021-01-31] MEDS ORDERED: IV NORMAL SALINE 500ML 500 ML ONE (02:57)
[2021-01-31] MEDS ORDERED: MORPHINE SULFATE 4 MG/ML DISP.SYRIN. ONE (02:58)
[2021-01-31] MEDS ORDERED: MORPHINE SULFATE 4 MG/ML DISP.SYRIN. IV ONE (03:00)
== END 2021-01-31 03:45 | disposition short-term general hospital (02) ==
LOC: ER 23:37
DX: O90.89 Other complications of the puerperium, not elsewhere classified (principal); S30.1XXA Contusion of abdominal wall, initial encounter; O86.89 Other specified puerperal infections; R59.1 Generalized enlarged lymph nodes; Z88.6 Allergy status to analgesic agent; X58.XXXA Exposure to other specified factors, initial encounter; Y93.89 Activity, other specified; Y92.89 Other specified places as the place of occurrence of the external cause; Y99.8 Other external cause status
CPT/HCPCS: 36415; 74177; 80048; 83605; 85025; 96365; 96367; 96375; 99291; J2270; J2543; J3370; J7030; J7040; Q9967

== ENCOUNTER 2021-11-02 08:58 | Emergency (ER) | payer OTHER ==
[~2021-11-02] VITALS: Ht 162.6 cm; Wt 97.0 kg
[2021-11-02 09:12] VITALS: BP 126/78
[2021-11-02] MEDS ORDERED: IBUPROFEN 600 MG TABLET. PO ONE (09:15)
[2021-11-02] MEDS ORDERED: ACETAMINOPHEN 500 MG TABLET PO ONE (09:15)
--- NOTE | 2021-11-02 09:16 | PHYS DOC ---
Past History Past Medical History: No Pertinent History (FELIPE HIDALGO APRN) Past Surgical History: (FELIPE HIDALGO APRN) Smoking: Non-smoker Alcohol Use: None Drug Use: Marijuana (FELIPE HIDALGO APRN) General Adult EDM: Chief Complaint: SORE THROAT HPI: HPI: Patient is a 31-year-old female who presents to the emergency department for a 2-day history of sore throat, pain with swallowing, fevers, loss of voice and a productive cough. Patient denies shortness of breath, nausea, vomiting, loss of taste or smell, sick exposures. No treatment prior to arrival. (FELIPE HIDALGO APRN) Review of Systems: Review of Systems: Constitutional: negative unless reported in HPI Eyes: negative unless reported in HPI HENT: negative unless reported in HPI Respiratory: negative unless reported in HPI Cardiovascular: negative unless reported in HPI GI: negative unless reported in HPI : negative unless reported in HPI Musculoskeletal: negative unless reported in HPI Integument: negative unless reported in HPI Neurologic: negative unless reported in HPI Endocrine: negative unless reported in HPI Lymphatic: negative unless reported in HPI Psychiatric: negative unless reported in HPI (FELIPE HIDALGO APRN) Allergies: Allergies: Allergies Coded Allergies Type Severity Reaction Last Updated Verified No Known Drug Allergies 01/30/21 No (FELIPE HIDALGO APRN) Physical Exam: PE: Constitutional: Well developed, well nourished, no acute distress, non-toxic appearance. [] HENT: Normocephalic, atraumatic, bilateral external ears normal, oropharynx moist, no oral exudates, 2+ tonsillar enlargement without exudate, erythematous oropharynx, postnasal drainage, uvula midline, no trismus, loss of voice, nose normal. [] Eyes: PERRL, EOMI, conjunctiva normal, no discharge. [] Neck: Normal range of motion, no tenderness, supple, no stridor. [] Cardiovascular:Heart rate regular rhythm, no murmur [] Lungs & Thorax: Bilateral breath sounds clear to auscultation [] Abdomen: Soft and flat Skin: Warm, dry, no erythema, no rash. [] Back: Normal range of motion Extremities: No tenderness, no cyanosis, no clubbing, ROM intact, no edema. [] Neurologic: Alert and oriented X 3, normal motor function, normal sensory function, no focal deficits noted. [] Psychologic: Affect normal, judgement normal, mood normal. [] (FELIPE HIDALGO APRN) Current Patient Data: Labs: Laboratory Tests Test 11/02/21 09:24 Influenza Type A (Rapid) Negative Influenza Type B (Rapid) Negative SARS-CoV-2 Antigen (Rapid) Negative Current Medications Medications (Trade) Dose Ordered Sig/Keesha Route PRN Reason Start Time Stop Time Status Last Admin Dose Admin Acetaminophen (Tylenol) 1,000 mg 1X ONCE PO 11/02/21 09:15 11/02/21 09:16 DC Ibuprofen (Motrin) 600 mg 1X ONCE PO 11/02/21 09:15 11/02/21 09:17 DC (FELIPE HIDALGO APRN) EKG: EKG: [] (FELIPE HIDALGO APRN) Radiology/Procedures: Radiology/Procedures: [] (FELIPE HIDALGO APRN) Heart Score: C/O Chest Pain: N/A Risk Factors: Risk Factors: DM, Current or recent (<one month) smoker, HTN, HLP, family history of CAD, obesity. Risk Scores: Score 0 - 3: 2.5% MACE over next 6 weeks - Discharge Home Score 4 - 6: 20.3% MACE over next 6 weeks - Admit for Clinical Observation Score 7 - 10: 72.7% MACE over next 6 weeks - Early Invasive Strategies (FELIPE HIDALGO APRN) Course & Med Decision Making: Course & Med Decision Making Pertinent Labs and Imaging studies reviewed. (See chart for details) Patient presents to the emergency department for sore throat, pain with swallowing, fever, cough. Patient will be tested for influenza, COVID and strep throat. She did have a fever in the emergency department today so this was treated with Tylenol. Patient's influenza, COVID and strep test were negative. However, given patient's presentation of enlarged tonsils with erythema and a fever, she will be treated with amoxicillin. Patient educated on symptomatic treatment. I discussed with patient all findings and diagnostic testing as well as the need to follow-up with PCP for further evaluation and treatment or return to the ER if any new or worsening symptoms. Strict return precautions were also discussed at length. Patient voiced understanding and agreement with the plan. Patient is hemodynamically stable at the time of disposition. (FELIPE HIDALGO APRN) Dragon Disclaimer: Dragon Disclaimer: This electronic medical record was generated, in whole or in part, using a voice recognition dictation system. (FELIPE HIDALGO APRN) Departure Departure: Impression: Primary Impression: Pharyngitis Qualified Codes: J02.9 - Acute pharyngitis, unspecified Disposition: HOME / SELF CARE / HOMELESS Condition: GOOD Referrals: PCP,NO (PCP) Patient Instructions: Viral and Bacterial Pharyngitis Additional Instructions: You were seen in the emergency department today for a sore throat. Your rapid influenza, COVID and strep testing was negative. However, we are going to treat you with an antibiotic for strep throat. Please start and finish the antibiotic completely. Increase your fluids and rest. Take Tylenol and ibuprofen for any pain or fevers. Can also perform warm salt water gargles. Follow-up with your primary care provider tomorrow regarding your ER visit. Return to the emergency department if you develop high fevers refractory to treatment, intractable nausea or vomiting, shortness of breath, increased throat swelling, difficulty maintaining secretions or swallowing or any new or worsening concerns. Scripts Amoxicillin (AMOXICILLIN) 500 Mg Capsule 1 CAP PO BID for infection for 10 Days, #20 CAP 0 Refills Prov: FELIPE HIDALGO APRN 11/02/21 Attending Signature Attending Signature I have reviewed the PA/DEVELOPMENT PLANNER's note and plan of care. I was available for consultation as needed during the patient's visit in the emergency department. I agree with the clinical impression, plan, and disposition. (MARIE JOHNSON DO) FELIPE HIDALGO APRN Nov 02, 2021 09:16 MARIE JOHNSON DO Nov 02, 2021 21:35
[2021-11-02 10:02] LABS: INFLUENZA A PATIENT NEGATIVE (NEGATIVE); INFLUENZA B PATIENT NEGATIVE (NEGATIVE)
[2021-11-02] MEDS ORDERED: AMOX500C PO (10:10)
== END 2021-11-02 10:23 | disposition home or self-care (01) ==
LOC: ER 08:58
DX: J02.9 Acute pharyngitis, unspecified (principal); Z20.822 Contact with and (suspected) exposure to COVID-19; R05.9 Cough, unspecified; R50.9 Fever, unspecified
CPT/HCPCS: 87070; 87077; 87428; 87880; 99283